=== PATIENT | male | born 1985 | race Caucasian/White ===

== ENCOUNTER 2017-11-27 01:36 | Emergency (ER) | payer MEDICAID ==
[2017-11-27] MEDS ORDERED: Bupivacaine 0.5% 30 ML SDV INFILT ONE (01:40)
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
[2017-11-27] MEDS ORDERED: Bacitracin Oint 1 GM U/D Packet TOP ONE (02:54)
[2017-11-27] MEDS ORDERED: Amoxicillin/Clavulanate K 875-125 MG Tab PO ONE (03:20)
[2017-11-27] MEDS ORDERED: Acetaminophen/HYDROcodone 325-10 MG Tab PO ONE (03:20)
--- NOTE | 2017-11-27 09:25 | CR ---
Left hand There is a soft tissue injury involving the midportion second finger. There is no fracture seen. Ther e is radiopaque debris within the soft tissues. Impression: 1. Soft tissue injury with mild debris within the soft tissues of the second finger.
== END 2017-11-27 03:35 | disposition home or self-care (01) ==
LOC: JP.ED 01:36
DX: S61.223A Laceration with foreign body of left middle finger without damage to nail, initial encounter (principal); S61.221A Laceration with foreign body of left index finger without damage to nail, initial encounter; F17.210 Nicotine dependence, cigarettes, uncomplicated; I10 Essential (primary) hypertension; Z88.2 Allergy status to sulfonamides; Z91.09 Other allergy status, other than to drugs and biological substances; Z79.899 Other long term (current) drug therapy; W34.00XA Accidental discharge from unspecified firearms or gun, initial encounter
CPT/HCPCS: 12042; 73120; 99282; 99283; A9270; 12031